=== PATIENT | female | born 1985 | race Caucasian/White ===

== ENCOUNTER 2018-04-08 21:11 | Emergency (ER) | payer SELFPAY ==
[~2018-04-08] VITALS: Ht 167.6 cm; Wt 65.0 kg
[2018-04-08] MEDS ORDERED: PLEASE ENTER ALLERGIES MC SCH (21:30)
[2018-04-08] MEDS ORDERED: HYDROcodone/APAP 5/325 TABLET PO ONE (21:30)
[2018-04-08] MEDS ORDERED: HYDROcodone/APAP 5/325 TABLET ONE (22:02)
[2018-04-08] MEDS ORDERED: KETOROLAC 30 MG/1 ML ONE (22:23)
[2018-04-08 22:28] VITALS: BP 114/80
[2018-04-08] MEDS ORDERED: KETOROLAC 30 MG/1 ML IM ONE (22:30)
== END 2018-04-08 22:42 | disposition home or self-care (01) ==
LOC: ED 22:36
DX: S06.0X9A Concussion with loss of consciousness of unspecified duration, initial encounter (principal); S16.1XXA Strain of muscle, fascia and tendon at neck level, initial encounter; G89.29 Other chronic pain; E03.9 Hypothyroidism, unspecified; W01.0XXA Fall on same level from slipping, tripping and stumbling without subsequent striking against object, initial encounter; Y93.89 Activity, other specified; Y92.009 Unspecified place in unspecified non-institutional (private) residence as the place of occurrence of the external cause; Y99.8 Other external cause status
CPT/HCPCS: 70450; 72125; 96372; 99284; J1885